=== PATIENT | male | born 1955 | race Caucasian/White ===

== ENCOUNTER 2025-08-29 12:25 | Inpatient (IN) | payer MEDICARE, OTHER ==
[~2025-08-29] VITALS: Ht 177.8 cm; Wt 65.3 kg
[2025-08-29 13:09] LABS: COVID AG,FIA SOURCE NASAL SWAB
[2025-08-29] MEDS ORDERED: BUPR-433 PO (13:10)
[2025-08-29 13:11] LABS: PLATELET COUNT (AUTO) 554 K/uL (150-450); RED BLOOD CELL COUNT(AUTO) 5.22 MIL/uL (4.50-5.90); RED CELL DISTRIBUTION WIDTH 13.6 % (11.5-14.5); WHITE BLOOD COUNT (AUTO) 13.3 K/uL (4.5-11.0)
[2025-08-29] MEDS ORDERED: OMEP-148 PO (13:19)
[2025-08-29] MEDS ORDERED: ATOR10TA PO (13:19)
[2025-08-29] MEDS ORDERED: AMLO-258 PO (13:19)
[2025-08-29] MEDS ORDERED: TAMS0.4C94 PO (13:19)
[2025-08-29 13:20] LABS: CALCIUM, TOTAL 9.0 mg/dL (8.8-10.5); CREATININE 0.77 mg/dL (0.60-1.30); GLOMERULAR FILTR. RATE CALC > 60 mL/min (>60); GLUCOSE,RANDOM 141 mg/dL (70-110); SODIUM SERUM 137 mmol/L (136-145); UREA NITROGEN, BLOOD 13 mg/dL (7-18)
[2025-08-29 13:46] LABS: SARS-COV2 (COVID) ANTIGEN,FIA Negative (Negative)
[2025-08-29 17:40] LABS: ALCOHOL, URINE DRUG SCREEN NEGATIVE (NEGATIVE); AMPHET/METH SCREEN,URINE NEGATIVE (NEGATIVE); BARBITURATE SCREEN, URINE NEGATIVE (NEGATIVE); CANNABINOID SCREEN,URINE POSITIVE (NEGATIVE); COCAINE SCREEN,URINE NEGATIVE (NEGATIVE); METHADONE SCREEN, URINE NEGATIVE (NEGATIVE)
[2025-08-29 17:42] LABS: APPEARANCE,URINE CLEAR (CLEAR); GLUCOSE, URINE (UA) NEGATIVE (NEGATIVE); LEUKOCYTE ESTERASE ,URINE NEGATIVE (NEGATIVE); NITRATE,URINE NEGATIVE (NEGATIVE); OCCULT BLOOD,URINE NEGATIVE (NEGATIVE); PH,URINE DRUG SCREEN 7.5 (5.0-8.0); SPECIFIC GRAVITIY, URINE 1.010 (1.003-1.030)
[2025-08-30 02:53] VITALS: O2SAT 97
[2025-08-30 05:25] LABS: CHOL/HDL RATIO 3.3 (4.2-7.3); LDL CHOL (CALC.) 81.0 mg/dL (0-130)
[2025-08-30] MEDS ORDERED: GuaiFENesin/D-METHORPHAN [SUGAR-FREE] 200-20MG/10 ML SYRUP UDCUP PO PRN (08:15)
[2025-08-30] MEDS ORDERED: ACETAMINOPHEN 325 MG TABLET PO PRN (08:15)
[2025-08-30] MEDS ORDERED: ONDANSETRON 4 MG TABLET PO PRN (08:15)
[2025-08-30] MEDS ORDERED: MAGNESIUM HYDROXIDE SUSPENSION 30 ML UDCUP PO PRN (08:15)
[2025-08-30] MEDS ORDERED: ALBUTEROL SULFATE HFA 90 MCG/PUFF 8 GM INHALER IH PRN (08:15)
[2025-08-30] MEDS ORDERED: NICOTINE 14 MG/24 HOUR PATCH TD PRN (08:15)
[2025-08-30] MEDS ORDERED: MAG HYDROX/ALUMINUM HYD/SIMETH ES 30 ML SUSPENSION UDCUP PO PRN (08:15)
[2025-08-30] MEDS ORDERED: DOCUSATE SODIUM 100 MG CAPSULE PO PRN (08:15)
[2025-08-30] MEDS ORDERED: PETROLATUM,WHITE 28 GM JELLY TP PRN (08:15)
[2025-08-30] MEDS ORDERED: LOPERAMIDE HCL 2 MG CAPSULE PO PRN (08:15)
[2025-08-30] MEDS: OMEPRAZOLE 20 MG CAPSULE PO SCH (10:28)
[2025-08-30 10:31] VITALS: BP 141/90; PULSE 93; RESP 16; TEMP 97.7; O2SAT 96
[2025-08-30 20:21] VITALS: BP 148/87; PULSE 95; RESP 18; TEMP 98.1; O2SAT 97
[2025-08-30] MEDS: TAMSULOSIN HCL 0.4 MG CAPSULE PO SCH (21:13)
[2025-08-30] MEDS: ATORVASTATIN CALCIUM 10 MG TABLET PO SCH (21:13)
[2025-08-31 08:41] VITALS: BP 151/92; PULSE 100; RESP 17; TEMP 97.2; O2SAT 100
[2025-08-31 08:58] LABS: CHOL/HDL RATIO 3.4 (4.2-7.3); LDL CHOL (CALC.) 90.0 mg/dL (0-130)
[2025-08-31 20:25] VITALS: BP 111/67; PULSE 80; RESP 17; TEMP 98.1; O2SAT 97
[2025-09-01 02:21] VITALS: BP 134/77; PULSE 94; RESP 18; TEMP 98.1
[2025-09-01] MEDS: ZOLPIDEM TARTRATE 10 MG TABLET PO PRN (02:29)
[2025-09-01] MEDS: IBUPROFEN 400 MG TABLET PO PRN (02:30)
[2025-09-01 03:21] VITALS: RESP 18
[2025-09-01 09:06] VITALS: BP 132/77; PULSE 89; RESP 16; TEMP 98.2; O2SAT 96
== END 2025-09-01 13:08 | disposition home or self-care (01) | DRG 885 ==
LOC: EMS 12:32 → B2S 08-30 04:50
PROVIDERS: ADMIT Psychiatry & Neurology Child & Adolescent Psychiatry; ATTEND Psychiatry & Neurology Child & Adolescent Psychiatry
PROC: GZ58ZZZ Individual Psychotherapy, Cognitive-Behavioral (ICD-10-PCS; principal; 2025-08-29)
PROC: GZ56ZZZ Individual Psychotherapy, Supportive (ICD-10-PCS; 2025-08-29)
DX: F33.2 Major depressive disorder, recurrent severe without psychotic features (principal); R45.851 Suicidal ideations; D72.829 Elevated white blood cell count, unspecified; E78.00 Pure hypercholesterolemia, unspecified; F12.90 Cannabis use, unspecified, uncomplicated; I10 Essential (primary) hypertension; Z20.822 Contact with and (suspected) exposure to COVID-19; N40.0 Benign prostatic hyperplasia without lower urinary tract symptoms; Z63.4 Disappearance and death of family member; Z98.1 Arthrodesis status; Z79.899 Other long term (current) drug therapy
CPT/HCPCS: 80048; 80061; 80307; 81003; 83036; 84443; 85025; 99285; G0480

== ENCOUNTER 2025-09-04 13:00 | Inpatient (IN) | payer MEDICARE, OTHER ==
[~2025-09-04] VITALS: Ht 170.2 cm; Wt 68.0 kg
[~2025-09-04 13:00] MED LIST: AMLO-258 PO; ATOR10TA PO; BUPR-433 PO; OMEP-148 PO; TAMS0.4C94 PO
[2025-09-04 14:10] LABS: PLATELET COUNT (AUTO) 494 K/uL (150-450); RED BLOOD CELL COUNT(AUTO) 4.68 MIL/uL (4.50-5.90); RED CELL DISTRIBUTION WIDTH 13.4 % (11.5-14.5); WHITE BLOOD COUNT (AUTO) 10.1 K/uL (4.5-11.0)
[2025-09-04 14:12] LABS: COVID AG,FIA SOURCE NASAL SWAB; SARS-COV2 (COVID) ANTIGEN,FIA Negative (Negative)
[2025-09-04 14:23] LABS: CALCIUM, TOTAL 8.7 mg/dL (8.8-10.5); CREATININE 0.73 mg/dL (0.60-1.30); GLOMERULAR FILTR. RATE CALC > 60 mL/min (>60); GLUCOSE,RANDOM 119 mg/dL (70-110); SODIUM SERUM 139 mmol/L (136-145); UREA NITROGEN, BLOOD 11 mg/dL (7-18)
[2025-09-04 14:32] LABS: TROPONIN I-HIGH SENSITIVITY 6 ng/L (<76)
[2025-09-04 16:25] VITALS: O2SAT 99
[2025-09-04] MEDS: ACETAMINOPHEN 500 MG TABLET PO ONE (17:53)
[2025-09-04] MEDS: OxyCODONE HCL 5 MG IR TABLET PO ONE (19:58)
[2025-09-04] MEDS: KETOROLAC TROMETHAMINE 30 MG/ML VIAL IM ONE (20:15)
[2025-09-04 21:25] VITALS: BP 125/75; PULSE 75; RESP 18; TEMP 98; O2SAT 99
[2025-09-04] MEDS ORDERED: INFLUENZA VIRUS VACCINE TVS (6MO+) 2025-26/PF 45 MCG/0.5 ML SYRINGE IM. ONE (22:45)
[2025-09-05] MEDS ORDERED: BISACODYL 10 MG RECTAL RECTAL SUPPOSITORY PR PRN (05:45)
[2025-09-05] MEDS ORDERED: DOCUSATE SODIUM 100 MG CAPSULE PO PRN (06:00)
[2025-09-05] MEDS ORDERED: MAGNESIUM HYDROXIDE SUSPENSION 30 ML UDCUP PO PRN ×2 (06:00)
[2025-09-05] MEDS ORDERED: ALBUTEROL SULFATE HFA 90 MCG/PUFF 8 GM INHALER IH PRN ×2 (06:00)
[2025-09-05] MEDS ORDERED: MAG HYDROX/ALUMINUM HYD/SIMETH ES 30 ML SUSPENSION UDCUP PO PRN ×2 (06:00)
[2025-09-05] MEDS ORDERED: LOPERAMIDE HCL 2 MG CAPSULE PO PRN ×2 (06:00)
[2025-09-05] MEDS ORDERED: GuaiFENesin/D-METHORPHAN [SUGAR-FREE] 200-20MG/10 ML SYRUP UDCUP PO PRN ×2 (06:00)
[2025-09-05] MEDS ORDERED: ONDANSETRON 4 MG TABLET PO PRN ×2 (06:00)
[2025-09-05] MEDS ORDERED: NICOTINE 14 MG/24 HOUR PATCH TD PRN (06:00)
[2025-09-05] MEDS ORDERED: PETROLATUM,WHITE 28 GM JELLY TP PRN ×2 (06:00)
[2025-09-05] MEDS: IBUPROFEN 400 MG TABLET PO PRN (06:29)
[2025-09-05 06:33] VITALS: BP 122/79; PULSE 77; RESP 18; O2SAT 98
[2025-09-05 07:30] VITALS: RESP 18; O2SAT 98
[2025-09-05 08:36] VITALS: BP 134/73; PULSE 83; RESP 18; TEMP 98.3; O2SAT 97
[2025-09-05 08:39] LABS: CHOL/HDL RATIO 2.5 (4.2-7.3); LDL CHOL (CALC.) 62.0 mg/dL (0-130)
[2025-09-05] MEDS: PANTOPRAZOLE SODIUM 40 MG DR TABLET PO SCH (08:56)
[2025-09-05] MEDS: BuPROPion HCL XL 150 MG ER TABLET PO SCH (12:05)
[2025-09-05 20:00] VITALS: BP 117/88; PULSE 77; RESP 18; TEMP 98.2; O2SAT 97
[2025-09-05] MEDS: ATORVASTATIN CALCIUM 10 MG TABLET PO SCH (20:23)
[2025-09-05] MEDS: TAMSULOSIN HCL 0.4 MG CAPSULE PO SCH (20:23)
[2025-09-05] MEDS: ZOLPIDEM TARTRATE 10 MG TABLET PO PRN (23:30)
[2025-09-06] MEDS: ACETAMINOPHEN 325 MG TABLET PO PRN (02:07)
[2025-09-06] MEDS: OMEPRAZOLE 20 MG CAPSULE PO SCH (08:05)
[2025-09-06 08:10] VITALS: BP 123/84; PULSE 74; RESP 18; TEMP 98; O2SAT 100
[2025-09-06 09:39] LABS: PLATELET COUNT (AUTO) 384 K/uL (150-450); RED BLOOD CELL COUNT(AUTO) 4.34 MIL/uL (4.50-5.90); RED CELL DISTRIBUTION WIDTH 13.2 % (11.5-14.5); WHITE BLOOD COUNT (AUTO) 6.6 K/uL (4.5-11.0)
[2025-09-06 10:33] LABS: ASPARTATE AMINOTRANSFERASE 27 U/L (15-37); CALCIUM, TOTAL 8.3 mg/dL (8.8-10.5); CREATININE 0.78 mg/dL (0.60-1.30); GLOMERULAR FILTR. RATE CALC > 60 mL/min (>60); GLUCOSE,RANDOM 82 mg/dL (70-110); SODIUM SERUM 142 mmol/L (136-145); TOTAL PROTEIN, SERUM 6.4 g/dL (6.4-8.2); UREA NITROGEN, BLOOD 15 mg/dL (7-18)
[2025-09-06 10:35] LABS: CHOL/HDL RATIO 2.6 (4.2-7.3); LDL CHOL (CALC.) 54.0 mg/dL (0-130)
[2025-09-06 17:15] VITALS: BP 138/88; PULSE 78; RESP 17; TEMP 97.5; O2SAT 99
[2025-09-06 20:08] VITALS: BP 142/76; PULSE 71; RESP 17; TEMP 97.8; O2SAT 98
[2025-09-07 02:40] VITALS: BP 121/86; PULSE 88; RESP 18; TEMP 97.8; O2SAT 99
[2025-09-07 08:28] VITALS: BP 133/78; PULSE 80; RESP 18; TEMP 97.7; O2SAT 98
[2025-09-07 09:03] LABS: APPEARANCE,URINE CLEAR (CLEAR); GLUCOSE, URINE (UA) NEGATIVE (NEGATIVE); LEUKOCYTE ESTERASE ,URINE NEGATIVE (NEGATIVE); NITRATE,URINE NEGATIVE (NEGATIVE); OCCULT BLOOD,URINE NEGATIVE (NEGATIVE); PH,URINE DRUG SCREEN 6.0 (5.0-8.0); SPECIFIC GRAVITIY, URINE 1.014 (1.003-1.030)
[2025-09-07 09:09] LABS: AMPHET/METH SCREEN,URINE NEGATIVE (NEGATIVE); BARBITURATE SCREEN, URINE NEGATIVE (NEGATIVE); CANNABINOID SCREEN,URINE POSITIVE (NEGATIVE); COCAINE SCREEN,URINE NEGATIVE (NEGATIVE); METHADONE SCREEN, URINE NEGATIVE (NEGATIVE)
[2025-09-07 09:15] LABS: ALCOHOL, URINE DRUG SCREEN NEGATIVE (NEGATIVE)
[2025-09-07] MEDS ORDERED: BUPR-50 PO (11:15)
[2025-09-07] MEDS ORDERED: QUET25TA PO (11:16)
[2025-09-07] MEDS ORDERED: PANT-31 PO (12:16)
== END 2025-09-07 14:07 | disposition home or self-care (01) | DRG 885 ==
LOC: EMS 13:05 → B2X 20:51
PROVIDERS: ADMIT Psychiatry & Neurology Psychiatry; ATTEND Psychiatry & Neurology Child & Adolescent Psychiatry
PROC: GZHZZZZ Group Psychotherapy (ICD-10-PCS; principal; 2025-09-05)
PROC: GZ52ZZZ Individual Psychotherapy, Cognitive (ICD-10-PCS; 2025-09-07)
DX: F25.0 Schizoaffective disorder, bipolar type (principal); I10 Essential (primary) hypertension; G89.29 Other chronic pain; N40.0 Benign prostatic hyperplasia without lower urinary tract symptoms; F12.10 Cannabis abuse, uncomplicated; Z20.822 Contact with and (suspected) exposure to COVID-19; E78.00 Pure hypercholesterolemia, unspecified; Z79.899 Other long term (current) drug therapy; Z98.1 Arthrodesis status
CPT/HCPCS: 80048; 80053; 80061; 80307; 81001; 83036; 84443; 84484; 85025; 99285; G0480; J1885